=== PATIENT | male | born 1995 | race Caucasian/White ===

== ENCOUNTER 2016-10-27 22:13 | Emergency (ER) | payer OTHER ==
[2016-10-28] MEDS ORDERED: Iohexol 300* (CONTRAST) 10 ML SDV IV ONE (02:09)
[2016-10-28 02:20] LABS: Hematocrit 45 % (42-52); Hemoglobin 15.5 g/dl (14.0-18.0); Mean Corpuscular HGB Conc 35 g/dl (31-36); Mean Corpuscular Hemoglobin 32 pg (27-31); Mean Corpuscular Volume 91 fL (80-94); Mean Platelet Volume 8 um3 (7.4-10.4); Red Blood Count 4.89 10^6/ul (4.0-5.4); Red Cell Distribution Width 13 % (10.5-15); White Blood Count 7.9 10^3/ul (3.5-10.8)
[2016-10-28 02:34] LABS: BUN/Creatinine Ratio 13.4 (8-20); Calcium 9.9 mg/dL (8.6-10.3); EGFR African American 106.4 (>60); EGFR Non-African American 82.8 (>60); Potassium 3.8 mmol/L (3.5-5.0)
[2016-10-28 03:36] VITALS: BP 130/83
--- NOTE | 2016-10-28 07:32 | RAD ---
INDICATION: Right rib injury. TECHNIQUE: 4 views of the right ribs were obtained. FINDINGS: No fracture or significant focal osseous abnormality is seen. IMPRESSION: NO EVIDENCE FOR FRACTURE.
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
== END 2016-10-28 03:36 | disposition home or self-care (01) ==
LOC: ED 22:13
DX: S20.211A Contusion of right front wall of thorax, initial encounter (principal); Y04.2XXA Assault by strike against or bumped into by another person, initial encounter; Y92.9 Unspecified place or not applicable
CPT/HCPCS: 36415; 74177; 80048; 85027; 96374; 99283; Q9967